=== PATIENT | male | born 1970 ===

== ENCOUNTER 2021-04-26 05:28 | Emergency (ER) | payer SELFPAY ==
[2021-04-26] MEDS ORDERED: TETRACAINE HCL 0.5% 4ML OPTH ONE (06:14)
[2021-04-26] MEDS ORDERED: FLUORESCEIN SODIUM 1 MG/WRAP ONE (06:14)
--- NOTE | 2021-04-26 07:12 | EDPHYS ---
Physician Documentation [facility] Name: Johnnie Tejeda Age: 51 yrs Sex: Male : 1970 Arrival Date: 04/26/2021 Time: 05:34 Bed 19 Private MD: ED Physician Sergey Uribe HPI: 04/26 06:59 This 51 yrs old Male presents to ER via Ambulatory with unknown complaint. pkl 06:59 The patient is experiencing foreign body sensation, pain, redness. Onset: The pkl symptoms/episode began/occurred 2 day(s) ago. The patient has not experienced similar symptoms in the past. Historical: - Allergies: 05:47 No Known Allergies; ak2 - Immunization history:: Adult Immunizations up to date. - Social history:: Smoking status: unknown. ROS: 06:59 ENT: Negative for injury, pain, and discharge. pkl 06:59 Eyes: Positive for foreign body sensation, pain, redness, of the left eye. 06:59 Neck: Negative for stiffness. 06:59 Cardiovascular: Negative for chest pain. 06:59 Respiratory: Negative for cough, shortness of breath. 06:59 Abdomen/GI: Negative for abdominal pain, nausea, vomiting, and diarrhea. 06:59 Back: Negative for acute changes. 06:59 : Negative for urinary symptoms. 06:59 MS/extremity: Negative for acute changes. 06:59 Skin: Negative for rash. 06:59 Neuro: Negative for altered mental status. Exam: 07:05 Visual Acuity: I have reviewed the nursing documentation. pkl 07:05 Head/Face: Normocephalic, atraumatic. 07:05 Eyes: Periorbital structures: no acute changes, no cellulitis, no swelling, Extraocular movements: intact throughout, Conjunctiva: injected, in the left eye, Corneas: abrasion, that is small, approximately 3 mm(s), at 3 o'clock. 07:05 ENT: Exam is negative for acute changes. 07:05 Neck: Exam negative for nuchal rigidity. 07:05 Chest/axilla: Exam negative for acute changes. 07:05 Cardiovascular: Rate: normal, Rhythm: regular. 07:05 Respiratory: the patient does not display signs of respiratory distress, Respirations: normal, Breath sounds: are clear throughout. 07:05 Abdomen/GI: Exam negative for acute changes. 07:05 Back: Exam negative for acute changes. 07:05 : Exam negative for acute changes. 07:05 Musculoskeletal/extremity: Exam is negative for acute changes. 07:05 Skin: Exam negative for rash. 07:05 Neuro: Orientation: is normal, Mentation: is normal, Cranial nerves: grossly normal, Motor: is normal. Vital Signs: 05:45 BP 154 / 105; Pulse 88; Resp 18; Temp 98.4; Pulse Ox 100% ; Weight 99.79 kg; Height 5 ak2 ft. 10 in. (177.80 cm); 05:45 Body Mass Index 31.57 (99.79 kg, 177.80 cm) ak2 Visual Acuity: 07:20 Left Eye Visual acuity 20/50, ; Right Eye Visual acuity 20/40, ; Both Eyes Visual mh5 acuity 20/40; With Lenses; MDM: 06:41 Patient medically screened. pkl 07:05 Data reviewed: vital signs, nurses notes. pkl 04/26 07:04 Order name: Visual Acuity pkl Administered Medications: No medications were administered Disposition Summary: 04/26/21 07:12 Discharge Ordered Location: Home pkl Problem: new pkl Symptoms: have improved pkl Condition: Stable pkl Diagnosis - Corneal abrasion left eye pkl Followup: pkl - With: Rossi Ledbetter MD - When: 2 - 3 days - Reason: Re-evaluation by your physician Discharge Instructions: - Discharge Summary Sheet eb Forms: - Medication Reconciliation Form pkl - Thank You Letter pkl - Antibiotic Education pkl - Prescription Opioid Use pkl - Work release form eb Signatures: Sergey Uribe MD MD pkl Kike Clark ga2
--- NOTE | 2021-04-26 07:12 | ER ---
Nurse's Notes [facility] Name: Johnnie Tejeda Age: 51 yrs Sex: Male : 1970 Arrival Date: 04/26/2021 Time: 05:34 Bed 19 Private MD: Diagnosis: Corneal abrasion left eye Presentation: 04/26 05:45 Chief complaint: Patient states: L eye irritation x2 days, denies injury or blurry ak2 vision. Coronavirus screen: Client denies travel out of the [place] in the last 14 days. At this time, the client does not indicate any symptoms associated with coronavirus-19. Ebola Screen: Patient negative for fever greater than or equal to 101.5 degrees Fahrenheit, and additional compatible Ebola Virus Disease symptoms Patient denies exposure to infectious person. Patient denies travel to an Ebola-affected area in the 21 days before illness onset. No symptoms or risks identified at this time. Initial Sepsis Screen: Does the patient meet any 2 criteria? No. Patient's initial sepsis screen is negative. Does the patient have a suspected source of infection? No. Patient's initial sepsis screen is negative. Risk Assessment: Do you want to hurt yourself or someone else? Patient reports no desire to harm self or others. Onset of symptoms was April 23, 2021. 05:45 Method Of Arrival: Ambulatory ak2 05:45 Acuity: ALEJANDRA 4 ak2 Triage Assessment: 05:47 General: Appears in no apparent distress. Behavior is calm, cooperative. Pain: Denies ak2 pain. Historical: - Allergies: 05:47 No Known Allergies; ak2 - Immunization history:: Adult Immunizations up to date. - Social history:: Smoking status: unknown. Screenin:48 Abuse screen: Denies threats or abuse. Denies injuries from another. Nutritional ak2 screening: No deficits noted. Tuberculosis screening: No symptoms or risk factors identified. Fall Risk None identified. Assessment: 05:47 General: Appears. Neuro: No deficits noted. Cardiovascular: No deficits noted. ak2 Respiratory: No deficits noted. Vital Signs: 05:45 BP 154 / 105; Pulse 88; Resp 18; Temp 98.4; Pulse Ox 100% ; Weight 99.79 kg; Height 5 ak2 ft. 10 in. (177.80 cm); 05:45 Body Mass Index 31.57 (99.79 kg, 177.80 cm) ak2 Visual Acuity: 07:20 Left Eye Visual acuity 20/50, ; Right Eye Visual acuity 20/40, ; Both Eyes Visual mh5 acuity 20/40; With Lenses; ED Course: 05:34 Patient arrived in ED. ag3 05:44 Kike Clark is Primary Nurse. ak2 05:47 Triage completed. ak2 05:48 Patient has correct armband on for positive identification. ak2 05:48 Patient placed in the treatment room, on a stretcher. ak2 05:48 No provider procedures requiring assistance completed. Patient did not have IV access ak2 during this emergency room visit. 06:41 Sergey Uribe MD is Attending Physician. pkl 07:11 Rossi Ledbetter MD is Referral Physician. pkl Administered Medications: No medications were administered Outcome: 07:12 Discharge ordered by . pkl 08:10 Patient left the ED. ll1 Signatures: Sergey Uribe MD MD pkKendra Reid [facility] Arnol Covarrubias RN RN 1 Kike Clark ak2
[2021-04-26] MEDS ORDERED: GENTAMICIN 0.3% OPTH DROP 5ML ONE (07:18)
[2021-04-26 08:15] VITALS: BP 154/105; TEMP 98.4; O2SAT 100
== END 2021-04-26 08:10 | disposition home or self-care (01) ==
LOC: ER 05:28
DX: S05.02XA Injury of conjunctiva and corneal abrasion without foreign body, left eye, initial encounter (principal)
CPT/HCPCS: 99281